=== PATIENT | male | born 1975 | race Caucasian/White ===

== ENCOUNTER 2017-08-15 09:53 | Emergency (ER) | payer BC ==
--- NOTE | 2017-08-15 11:55 | RAD ---
INDICATION: 6 days cough; RIGHT side rhonchi. Wheezing. Fever. COMPARISON: October 23, 2006 TECHNIQUE: Dual energy PA and routine lateral views of the chest were obtained. REPORT: Mild airspace consolidation at the RIGHT lung base posteriorly without volume loss consistent with inflammatory infiltrate given the clinical context. Negative for pleural effusion or pneumothorax. The heart, pulmonary vasculature, and mediastinal contours are unremarkable. IMPRESSION: Mild alveolar consolidation at the RIGHT lung base consistent with pneumonia given the clinical context.
[2017-08-15 12:04] VITALS: BP 144/81
--- NOTE | 2017-08-15 12:04 | UC ---
Respiratory Complaint HPI - HPI Summary HPI Summary: Cough x 6 days, worsening, + fever, chills at night, SOB with coughing, productive cough- green/ yellow sputum. no prior symptoms, no h/o asthma. no PMH, no prescription meds - History of Current Complaint Chief Complaint: UCGeneralIllness Stated Complaint: FEVER/CHILLS Time Seen by Provider: 08/15/17 11:16 Hx Obtained From: Patient Onset/Duration: Gradual Onset, Lasting Days, Worse Since - daily Timing: Constant Severity Initially: Mild Severity Currently: Moderate - Allergies/Home Medications Allergies/Adverse Reactions: Allergies Allergy/AdvReac Type Severity Reaction Status Date / Time No Known Allergies Allergy Verified 08/15/17 11:20 PMH/Surg Hx/FS Hx/Imm Hx Previously Healthy: Yes Other History Of: Negative For: HIV, Hepatitis B, Hepatitis C, Anticoagulant Therapy - Surgical History Surgical History: None - Family History Known Family History: Positive: Diabetes Negative: Cardiac Disease, Hypertension - Social History Alcohol Use: Occasionally Substance Use Type: None Smoking Status (MU): Former Smoker When Did the Patient Quit Smoking/Using Tobacco: 20 years ago - Immunization History Most Recent Influenza Vaccination: not current Review of Systems Constitutional: Chills, Fatigue Respiratory: Shortness Of Breath, Cough Is Patient Immunocompromised?: No All Other Systems Reviewed And Are Negative: Yes Physical Exam Triage Information Reviewed: Yes Vital Signs: Initial Vital Signs Temp 98.3 F 08/15/17 11:14 Pulse 88 08/15/17 11:14 Resp 18 08/15/17 11:14 BP 144/81 08/15/17 11:14 Pulse Ox 98 08/15/17 11:14 Eye Exam: Normal Neck: Positive: Supple, Nontender, No Lymphadenopathy Respiratory: Positive: Normal breath sounds, No respiratory distress, No accessory muscle use, Rhonchi - R lobe, Wheezing Cardiovascular: Positive: RRR, No Murmur, Pulses Normal, Tachycardia - mild Abdomen Description: Positive: Nontender, No Organomegaly, Soft, Bruit. Negative: CVA Tenderness (R), CVA Tenderness (L) UC Diagnostic Evaluation - Laboratory O2 Sat by Pulse Oximetry: 98 Respiratory Course/Dx - Course Course Of Treatment: CXR- probable right PNA, abx for CAP - Differential Dx/Diagnosis Differential Diagnosis/HQI/PQRI: Asthma, Bronchitis, CHF, Pulmonary Edema Provider Diagnoses: CAP Discharge - Discharge Plan Condition: Fair Disposition: HOME Prescriptions: Albuterol 2.5MG/3ML (0.083%)* [Ventolin 2.5 MG/3 ML NEB.PAOLO*] 2.5 mg INH Q4H # 25 neb.paolo Albuterol HFA INHALER* [Ventolin HFA Inhaler*] 1 puff INH Q4H PRN #1 mdi PRN Reason: shortness of breath Clarithromycin TAB* [Biaxin 250 MG TAB*] 250 mg PO BID #20 tab Patient Education Materials: Community Acquired Pneumonia (ED) Forms: *Work Release Referrals: Non Staff,Doctor [Primary Care Provider] - Additional Instructions: - FOllow up in ER for worsening symptoms - Increase fluid intake - Increase probiotic use - tylenol/ motrin for fever, pains - ALbuterol inhaler, nebulizer for shortness of breath every 4 hours - Increase rest - Follow up with primary physician within 2-5 days for repeat evaluation
== END 2017-08-15 12:29 | disposition home or self-care (01) ==
LOC: UCCORT 09:53
DX: J18.9 Pneumonia, unspecified organism (principal); Z87.891 Personal history of nicotine dependence
CPT/HCPCS: 71020; 99212; G0463

== ENCOUNTER 2018-02-16 08:13 | Emergency (ER) | payer BC ==
[2018-02-16 08:29] VITALS: BP 136/80
--- NOTE | 2018-02-16 09:12 | UC ---
Respiratory Complaint HPI - HPI Summary HPI Summary: PATIENT PRESENTS WITH 3 DAYS OF WORSENING SINUS PRESSURE, CHEST CONGESTION AND PRODUCTIVE COUGH. PATIENT HAS HAD PNEUMONIA BOTH AN ADULT AND A CHILD. HE ALSO HAS ALLERGIES AND HAS A NEBULIZER AT HOME. HE DENIES FEVER, SORE THROAT , EAR PAIN, NAUSEA/VOMITING. - History of Current Complaint Chief Complaint: UCGeneralIllness Stated Complaint: SINUS/CHEST CONGESTION Time Seen by Provider: 02/16/18 08:51 Hx Obtained From: Patient Onset/Duration: Gradual Onset, Lasting Days, Still Present Timing: Constant Severity Initially: Moderate Severity Currently: Moderate Pain Intensity: 0 Pain Scale Used: 0-10 Numeric Character: Cough: Productive Aggravating Factors: Deep Breaths Alleviating Factors: Nothing Associated Signs And Symptoms: Positive: Sinus Discomfort. Negative: Dyspnea, Fever, Chills, Pleuritic Chest Pain, Wheezing, Hemoptysis, URI, Nasal Congestion - Allergies/Home Medications Allergies/Adverse Reactions: Allergies Allergy/AdvReac Type Severity Reaction Status Date / Time No Known Allergies Allergy Verified 08/15/17 11:20 Home Medications: Home Medications Garlic [Garlic Oil] 1 each PO DAILY 02/16/18 [History Confirmed 02/16/18] Ginseng 1 each PO DAILY 02/16/18 [History Confirmed 02/16/18] [place]-3 Fatty Acids/Fish Oil [Fish Oil 1,000 mg Capsule] 1 each PO DAILY [History Confirmed 02/16/18] PMH/Surg Hx/FS Hx/Imm Hx Previously Healthy: Yes Other History Of: Negative For: HIV, Hepatitis B, Hepatitis C, Anticoagulant Therapy - Surgical History Surgical History: None - Family History Known Family History: Positive: Diabetes Negative: Cardiac Disease, Hypertension - Social History Alcohol Use: Occasionally Substance Use Type: None Smoking Status (MU): Former Smoker When Did the Patient Quit Smoking/Using Tobacco: 20 years ago - Immunization History Most Recent Influenza Vaccination: not current Review of Systems Constitutional: Negative ENT: Sinus Congestion Respiratory: Cough Cardiovascular: Negative Gastrointestinal: Negative All Other Systems Reviewed And Are Negative: Yes Physical Exam Triage Information Reviewed: Yes Appearance: Well-Appearing, No Pain Distress, Well-Nourished Vital Signs: Initial Vital Signs Temp 98.8 F 02/16/18 08:25 Pulse 88 02/16/18 08:25 Resp 14 02/16/18 08:25 BP 136/80 02/16/18 08:25 Pulse Ox 98 02/16/18 08:25 Vital Signs Reviewed: Yes Eyes: Positive: Conjunctiva Clear ENT: Positive: Hearing grossly normal, Pharynx normal, TMs normal Neck: Positive: Supple, Nontender, No Lymphadenopathy Respiratory: Positive: No respiratory distress, No accessory muscle use, Decreased breath sounds, Wheezing - BILATERAL LOWER LOBES, LEFT>RIGHT WITH DIFFUSE COARSE BREATH SOUNDS Cardiovascular Exam: Normal Abdomen Description: Positive: Soft Musculoskeletal: Positive: No Edema Neurological: Positive: Alert Psychological: Positive: Age Appropriate Behavior Skin: Negative: rashes UC Diagnostic Evaluation - Laboratory O2 Sat by Pulse Oximetry: 98 - Radiology Xray Interpretation: No Acute Changes - CXR Radiology Interpretation Completed By: Radiologist Respiratory Course/Dx - Differential Dx/Diagnosis Provider Diagnoses: ACUTE BRONCHITIS WITH BRONCHOSPASM Discharge - Sign-Out/Discharge Documenting (check all that apply): Discharge/Admit/Transfer - Discharge Plan Condition: Stable Disposition: HOME Prescriptions: Albuterol HFA INHALER* [Ventolin HFA Inhaler*] 2 puff INH Q4H PRN #1 mdi PRN Reason: Shortness Of Breath Inhaler, Assist Devices [Aerochamber Mini] 1 each MC Q4H PRN #1 spacer PRN Reason: Cough predniSONE TAB* [Deltasone TAB*] 50 mg PO DAILY #5 tab Patient Education Materials: Acute Bronchitis (ED), Bronchospasm (ED) Referrals: Non Staff,Doctor [Primary Care Provider] - Additional Instructions: CHEST X-RAY TODAY UNREMARKABLE. YOUR SYMPTOMS ARE LIKELY VIRALLY MEDIATED AND SHOULD RESOLVE ON THEIR OWN WITH TIME. NO INDICATION FOR ANTIBIOTICS AT PRESENT. REST, HYDRATE, OTC MEDS NEEDED. WILL TREAT WITH PREDNISONE TO HELP WITH AIRWAY INFLAMMATION. USE YOUR ALBUTEROL PRESCRIBED. SEEK FOLLOW-UP WITH YOUR PCP IF YOU ARE NOT IMPROVING OVER THE NEXT 1-2 WEEKS. TAKE A DAILY OTC ANTIHISTAMINE TO COVER FOR ANY ALLERGIC COMPONENT. - Billing Disposition and Condition Condition: STABLE Disposition: Home
[2018-02-16] MEDS ORDERED: Albuterol 2.5 MG/3 ML NEB.SOL* (0.083%) INH ONE (09:13)
[2018-02-16] MEDS ORDERED: Ipratropium 0.5MG/2.5ML NEB* 0.5 MG/2.5 ML NEB.SOLN INH ONE (09:13)
--- NOTE | 2018-02-16 09:19 | RAD ---
HISTORY: COUGH, WHEEZE COMPARISONS: August 15, 2017 VIEWS: 4: Frontal dual-energy and lateral views of the chest. FINDINGS: CARDIOMEDIASTINAL SILHOUETTE: The cardiomediastinal silhouette is normal. MYRIAM: The myriam are normal. PLEURA: The costophrenic angles are sharp. No pleural abnormalities are noted. LUNG PARENCHYMA: The lungs are clear. ABDOMEN: The upper abdomen is clear. There is no subphrenic gas. BONES AND SOFT TISSUES: No bone or soft tissue abnormalities are noted. OTHER: None. IMPRESSION: NO ACTIVE CARDIOPULMONARY DISEASE.
== END 2018-02-16 09:50 | disposition home or self-care (01) ==
LOC: UCCORT 08:13
DX: J20.9 Acute bronchitis, unspecified (principal)
CPT/HCPCS: 71046; 99212; G0463